=== PATIENT | female | born 1990 | race Caucasian/White ===

== ENCOUNTER 2017-07-04 00:57 | Inpatient (IN) ==
--- OUTSIDE RECORDS SUMMARY | 2017-07-04 04:36 | External Medical Summary | Continuity of Care Document ---
:1990 Author Organization [facility] [employer] [place] Address [address] [place], [place] [address] Phone Support Name Relationship Address Phone Les Capps spouse [address] [phone] [place] [address] Allergies, Adverse Reactions, Alerts Substance Reaction Severity Status No Known Drug Allergies Unknown Active Medications Medication Instructions Dosage Effective Dates Status Comments (start - stop) MULTIVITAMIN - Active (unknown strength) Cipro 500 mg tablet take 1 tablet by 500 MG - No Longer oral route every 12 Active hours Problems Condition Effective Dates (start - stop) Clinical Status Threatened Acute inflammatory disease of uterus 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 quality chemist 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 (general) - (routine) w 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 quality chemist exam (general) (routine) w/o abn findings Pap Smear Screening, Cervix - Amenorrhea, Secondary - Active SAB Uncomplicated, Unspecified - Active Irregular Menses - Active Active Procedures Procedure Date Office/outpatient visit,[facility] Results Test Name Date and Time Measure Units Reference Range Abnormal Flag Comments Unknown Advance Directives Directive Yes / No Effective Date File Name Unknown Encounters Encounter Practice Location Reason(s) Diagnoses Date Provider Care Team Description For Visit Members Office/outpat Associates Kishore early OB Threatened Nov- Newton Referring ient In Womens with Concepcion. Provider: visit,[facility], Health PA, spotting 7 700 Jada [facility] [address], (chief Medical Melissa Blancas, [place], complaint) Center 700 [id number], , [facility] [place] 120, Center tel:+21 Kishore, [facility] 120, [address] [place], Kishore, [id number] [place], , [place]. [id number]. tel: tel: [phone] Sunni Novak Nov-0 Melissa In Womens 8-201 Jada. Health PA, 6 700 [address], Medical [place], [place] [id number], , [facility] [place] 120, tel:21 Kishore, [address] [place], [id number] , [place]. tel: [phone] Sunni Novak Acute Sep-2 Collins Referring In Womens inflammatory 1-201 Namrata. Provider: Health PA, disease of 6 700 Jada [address], uterusEncntr for [place], air quality chemist exam Center 700 [id number], (general) , [facility] (routine) w 120, Center tel:21 abnormal Kishore [facility] 120, [address] findingsEncntr [place] for air quality chemist exam [id number] [place], (general) , [place]. [id number]. (routine) w/o tel: tel: abn findingsPap [phone] Smear Screening, Cervix Associates Kishore May-0 Melissa Referring In Womens 6-201 Jada. Provider: Health DICK, 5 700 Jada [address], Medical [place], [place], Center 700 [id number], , [facility] [place] 120, Center tel:21 Kishore [facility] 120, [address] [place], Kishore, [id number] [place], , [place]. [id number]. tel: tel:[phone] Sunni Novak Marky-0 Melissa Referring In Womens 7-201 Jada. Provider: Health PA, 5 700 Jada [address], Medical [place], [place], Center 700 [id number], , [facility] [place] 120, Center tel:21 Kishore [facility] 120, [address] [place], Kishore, [id number] [place], , [place]. [id number]. tel: tel:[phone] Associates Novak Apr- Melissa In Womens 5-200 Jada. Health PA, 9 700 [address], [facility] [id number], Kurt Ryder [place] 120, tel:39117 [place] [address] [place], [id number] , . tel: [phone] Family History Family Member Diagnosis Age At Onset No family history of Venous Thrombosis Paternal Grandfather Cardiovascular Disease Maternal Grandfather Diabetes mellitus No family history of Pulmonary Embolism Immunizations Vaccine Date Status Comments Influenza, seasonal, injectable, completed Source: Other Provider preservative free, 3 yrs or older Tdap completed Source: New Immunization Record Influenza, injectable, completed Source: New Immunization Record quadrivalent, preservative free, 3 yrs or older Payers Payer name Insurance type Covered libertarian ID Authorization(s) [facility] [id number] [facility] [id number] [facility] [id number] [facility] [id number] Social History Type Description Quantity Date Captured Alcohol Use Details Unknown Caffeine Use Details Unknown Tobacco Use Status Unknown Smoking Status Never smoker Vital Signs Date / Height Weight BMI Pulse Blood Temperature Respiratory Body Head BMI Time: Rate Pressure Rate Surface Circumference percentile Area 168.50 95 115/84 -2017 lbs /min mm[Hg] 2:47 PM Chief Complaint And Reason For Visit Most recent encounter only, dated '11/11/2016 14:50'. early OB with spotting (chief complaint). Description: By LMP, she is 6w0d, with EDC 07/07/17. Wed PMshe had some red spotting, then yesterday morning some bleeding with wiping, and then today a small amount of brown bleeding. No pain. She does have nausea. She is Rh positive. Reason For Referral Reason For Referral Unknown Plan Of Care Date Type Action Status Appointment Mercedes Capps BOOKED Future Order: Lab Order Pap Smear With HPV Reflex If ASCUS Ordered ([id number]) Date Type Problem Goal Intervention Status Start Date Unknown. History Of Present Illness Encounter Date Complaint History Of Present Illness early OB with spotting By LMP, she is 6w0d, with EDC 07/07/17. Wed PM she had some red spotting, then yesterday morning some bleeding with wiping, and then today a small amount of brown bleeding. No pain. She does have nausea. She is Rh positive. Functional Status Encounter Date Functional Assessment Cognitive Assessment Unknown Medications Administered Medication Instructions Dosage Effective Dates (start - stop) Status Comments Drug Treatment Unknown Instructions Date Instruction Additional Information HIV and other routine tests risk factors identified by history anticipated course of care nutrition and weight gain counseling, special diet toxoplasmosis precautions (cats / raw meat) sexual activity exercise indications for ultrasound influenza vaccine environmental / work hazards travel tobacco (ask, advise, assess, assist and arrange) alcohol illicit / recreational drugs use of any medications (including supplements, vitamins, herbs, OTC drugs) smoking counseling domestic violence seat belt use childbirth classes / hospital facilities hospital registration genetic testing new ob handbook
--- OUTSIDE RECORDS SUMMARY | 2017-07-04 04:37 | External Medical Summary | Continuity of Care Document ---
:1990 Author Organization [facility] [employer] [facility] Address [address] [place], [place] [address] Phone Support Name Relationship Address Phone Les Capps spouse [phone] 24 [phone] [place] [address] Allergies, Adverse Reactions, Alerts Substance Reaction Severity Status No Known Drug Allergies Unknown Active Medications Medication Instructions Dosage Effective Dates (start Status Comments - stop) MULTIVITAMIN (unknown - Active strength) Problems Condition Effective Dates (start - stop) Clinical Status Encounter for suprvsn of normal - , second trimester 24 weeks gestation of - 28 weeks gestation of - Acute inflammatory disease of uterus 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) - (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) w 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) (routine) w/o abn findings Pap Smear Screening, Cervix - Threatened Encounter for suprvsn of normal - , first trimester 9 weeks gestation of - Encounter for suprvsn of normal - , first trimester 13 weeks gestation of - Encounter for suprvsn of normal - , second trimester 20 weeks gestation of - Encounter for suprvsn of normal - , second trimester 17 weeks gestation of - Encounter for suprvsn of normal - , second trimester 20 weeks gestation of - Amenorrhea, Secondary - Active SAB Uncomplicated, Unspecified - Active Irregular Menses - Active Active Procedures Procedure Date OB Visit No Charge Hemoglobin count, colorimetric Hematocrit blood count Glucose test Venpnctr fngr/heel/ear stick routne Results Test Name Date and Time Measure Units Reference Range Abnormal Flag Comments Panel Description: Glucose [Mass/volume] in Serum or Plasma --1 hour post 50 g glucose PO GLUCOSE, 125 mg/dL <140 N Test performed at [facility] [facility] 11:47:00 [employer] [id number] (50G)-[address] [place] [address]Xhevzrme: JASMIN RUEDA DO,MPH Panel Description: HEMOGLOBIN + HEMATOCRIT HEMOGLOBIN 11:47:00 12.2 g/dL 11.7-15.5 N HEMATOCRIT 11:47:00 37.0 % 35.0-45.0 N REPORT COMMENT:FASTING :NOTest performed at [facility] [id number] [place] [id number]: JASMIN RUEDA DO,MPH Advance Directives Directive Yes / No Effective Date File Name Unknown Encounters Encounter Practice Location Reason(s) Diagnoses Date Provider Care Team Description For Visit Members Sunni Novak Encounter for Melissa Referring In Womens suprvsn of 0-201 Jada. Provider: Asmita JENNINGS normal 8 700 Jada [address], , Medical Hilary Li [place], [facility] 700 [id number], [id number] Kurt Ryder [facility] [place] weeks gestation 120, [place] tel: of [email or web address] Kishore [facility] 120, [address] weeks gestation Kishore [place], of [id number] [place], , [place]. [id number]. tel: tel: [phone] Sunni Novak Encounter for Melissa Referring In Womens suprvsn of 3-201 Jada. Provider: Asmita JENNINGS normal 7 700 Jada [address], , Medical [place]ary Li [place], [facility] Center 700 [id number], [id number] Kurt Ryder [place] weeks gestation 120, Center tel: of [place], Kurt 120, [address] [place], [place], [id number] [place], , [place]. [id number]. tel: tel:[phone] Sunni Novak Encounter for Dec-1 Melissa Referring In Womens Ultrasound suprvsn of 3-201 Jada. Provider: Health DICK, normal 7 700 Jada [address], , Medical [place]ary [place], second Center 700 [id number], [id number] , [facility] [place] weeks gestation 120, Center tel: of Novak, Kurt 120, [address] [place], [place]ore, [id number] [place], , [place]. [id number]. tel: tel:[phone] Sunni Novak Encounter for Nov-2 Melissa Referring In Womens suprvsn of 2-201 Jada. Provider: Health DICK, normal 7 700 Jada [address], , Medical Hilary Li [place], second Center 700 [id number], [email or web address] , [facility] [place] weeks gestation 120, Center tel: of Kishore, Kurt 120, [address] [place], Kishore, [id number] [place], , [place]. [id number]. tel: tel:[phone] Sunni Novak Encounter for Oct-2 Melissa Referring In Womens suprvsn of 3-201 Jada. Provider: Health DICK, normal 7 700 Jada [address], , Medical [place]ary Li [place], first Center 700 [id number], [email or web address] Dr [facility] [place] weeks gestation 120, Center tel: of Novak, Kurt 120, [address] [place], [place]ishore, [id number] [place], , [place]. [id number]. tel: tel:[phone] Sunni Novak Encounter for Sep-2 Melissa Referring In Womens suprvsn of 7-201 Jada. Provider: Health DICK, normal 7 700 Jada [address], , Medical [place]ary Li [place], first Center 700 [id number], [id number] Dr [facility] weeks gestation 120, Center tel:21 of Kishore, [facility] 120, [address] [place], Kishore, [id number] [place], , [place]. [id number]. tel: tel: [phone] Associates Kishore Threatened Sep-0 Newton Referring In Womens 1-201 Concepcion. Provider: Health PA, 7 700 Jada [address], Samuel Blancas, [place], [place], Center [facility] [id number], , [facility] 120, Center tel: Kishore [facility] 120, [address] [place], Kishore, [id number] [place], , [place]. [id number]. tel: tel: [phone] Associates Kishore Nov-0 Melissa In Womens 8-201 Jada. Health PA, 6 700 [address], [place], [place], [place] , Dr [facility] 120, tel: [place] [address] [place], [id number] , [place]. tel: [phone] Associates Kishore Acute Sep-2 Collins Referring In Womens inflammatory 1-201 Namrata. Provider: Health DICK, disease of 6 700 Jada [address], uterusEncntr [place], for diesel 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 exam Center [facility] [id number], (general) Dr [facility] (routine) w 120, Center tel:21 abnormal Kishore [facility] 120, [address] findingsEncntr Kishore [place] for diesel 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 exam [id number] [place], (general) , [place]. [id number]. (routine) w/o tel: tel: abn findingsPap [phone] Smear Screening, [facility] Kishore May-0 Melissa Referring In Womens 6-201 Jada. Provider: Health PA, 5 700 Jada [address], Medical Melissa Blancas, [place], Center [facility] [id number], Dr [facility] [place] 120, Center tel:21 Kishore [facility] 120, [address] [place], Kishore [id number] [place], , [place]. [id number]. tel: tel: [phone] Associates Kishore Mar- Melissa Referring In Womens 7-201 Jada. Provider: Health PA, 5 700 Jada [address], Medical Melissa Blancas [place], Center 700 [id number], , [facility] 120, [place] Dr tel:+21 [facility], [address] [place], [place], [id number] [place], , [place]. [id number]. tel: tel:[phone] Associates Kishore Apr-0 Melissa In Womens 5-200 Jada. Health PA, 9 700 [address], [place], [place], [place] [id number], , [facility] 120, tel:+21 Kishore, [address] [place], [id number] , [place]. tel: [phone] Family History Family Member Diagnosis Age At Onset No family history of Venous Thrombosis Paternal Grandfather Cardiovascular Disease Maternal Grandfather Diabetes mellitus No family history of Pulmonary Embolism Immunizations Vaccine Date Status Comments Influenza, injectable, completed Source: New Immunization Record quadrivalent, preservative free, 3 yrs or older Influenza, seasonal, injectable, completed Source: Other Provider preservative free, 3 yrs or older Tdap completed Source: New Immunization Record Influenza, injectable, completed Source: New Immunization Record quadrivalent, preservative free, 3 yrs or older Payers Payer name Insurance type Covered constitution party ID Authorization(s) [facility] [id number] [facility] [id number] [facility] [id number] [facility] [id number] [facility] [id number] Social History Type Description Quantity Date Captured Alcohol Use Details No Caffeine Use Details Unknown Tobacco Use Status Unknown Smoking Status Never smoker Vital Signs Date / Height Weight BMI Pulse Blood Temperature Respiratory Body Head BMI Time: Rate Pressure Rate Surface Circumference percentile Area 172.90 30.1 lbs 4 mm[Hg] 10:41 kg/m AM eter (2) Chief Complaint And Reason For Visit Unknown Chief Complaint And Reason For Visit Reason For Referral Reason For Referral Unknown Plan Of Care Date Type Action Status Appointment Mercedes Capps BOOKED Appointment Mercedes Capps BOOKED Appointment Mercedes Capps BOOKED Appointment Mercedes Capps BOOKED Appointment Mercedes Capps BOOKED Future Order: Radiology Order Complete OB Ultrasound > 14 Ordered Weeks ([id number]) Date Type Problem Goal Intervention Status Start Date Unknown. History Of Present Illness Encounter Date Complaint History Of Present Illness This patient has no known history of present illness Functional Status Encounter Date Functional Assessment Cognitive Assessment Unknown Medications Administered Medication Instructions Dosage Effective Dates (start - stop) Status Comments Drug Treatment Unknown Instructions Date Instruction Additional Information domestic violence seat belt use childbirth classes / hospital facilities hospital registration genetic testing HIV and other routine tests risk factors identified by history anticipated course of care nutrition and weight gain counseling, special diet toxoplasmosis precautions (cats / raw meat) sexual activity exercise indications for ultrasound influenza vaccine environmental / work hazards travel use of any medications (including supplements, vitamins, herbs, OTC drugs) HIV and other routine tests risk factors [...]
--- OUTSIDE RECORDS SUMMARY | 2017-07-04 04:37 | External Medical Summary | Continuity of Care Document ---
:1990 Author Organization [facility] [employer] [facility] Address [address] [place], [place] [id number] Phone Support Name Relationship Address Phone Les Capps spouse [address] 24 [phone] [place] [address] Allergies, Adverse Reactions, Alerts Substance Reaction Severity Status No Known Drug Allergies Unknown Active Medications Medication Instructions Dosage Effective Dates (start Status Comments - stop) MULTIVITAMIN (unknown - Active strength) Problems Condition Effective Dates (start - stop) Clinical Status Encounter for suprvsn of normal - , second trimester 20 weeks gestation of - Acute inflammatory disease of uterus 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 Provider: Asmita JENNINGS normal 7 700 Jada [address], , Medical Melissa L, [place], [place], second Center 700 [id number], [email or web address] Dr [place] weeks gestation 120, Center tel: of Kishore [facility] 120, [address] [place], [place]ishore, [id number] [place], , [place]. [id number]. tel: tel:[phone] Sunni Novak Encounter for Dec-1 Melissa [facility] Jada. Provider: Asmita JENNINGS normal 7 700 Jada [address], , Medical Melissa L, [place], second Center 700 [id number], [email or web address] Dr [facility] [place] weeks gestation 120, Center tel: of Kishore [facility] 120, [address] [place], [place]ore, [id number] [place], , [place]. [id number]. tel: tel:+[phone] Sunni Novak Encounter for Nov- Melissa [facility] of Jada. Provider: Amsita JENNINGS normal 7 700 Jada [address], , Medical Melissa L, [place], second Center 700 [id number], [email or web address] Dr [facility] [place] weeks gestation 120, [place] tel: of Kishore [facility] 120, [address] [place], [place]ore, [id number] [place], , [place]. [id number]. tel: tel:+[phone] Sunni Novak Encounter for Oct-2 Melissa Referring In [facility] of Jada. Provider: Asmita JENNINGS normal 7 700 Jada [address], , Medical Melissa L, [place], first Center 700 [id number], [email or web address] Dr [facility] Samuel [place] weeks gestation 120, [place] tel:+ of Kishore [facility] 120, [address] [place], Kishore, [id number] [place], , [place]. [id number]. tel: tel: [phone] Sunni Novak Encounter for Sep-2 Melissa Referring In Womens suprvsn of 7-201 Jada. Provider: Health DICK, normal 7 700 Jada [address], , Medical Olu Lita [place], first Center [facility] [id number], [id number] , [facility] [place] weeks gestation 120, Center tel:21 of Kishore [facility] 120, [address] [place], [place]ishore, [id number] [place], , [place]. [id number]. tel: tel: [phone] Sunni Novak Threatened Sep-0 Newton Referring In Womens 1-201 Concepcion. Provider: Asmita JENNINGS, 7 700 Jada [address], Hilary [place], Center [facility] [id number], Dr [facility] [place] 120, [place] tel:21 Kishore [facility] 120, [address] Kishore [place], [id number] [place], , [place]. [id number]. tel: tel: [phone] Sunni Novak Nov-0 Melissa In Womens 8-201 Jada. Health DICK, 6 700 [address], [place], [place] [id number], Dr [facility] [place] 120, tel:21 Kishore, [address] [place], [id number] , [place]. tel: [phone] Sunni Novak Acute Sep-2 Collins Referring In Womens inflammatory 1-201 Namrata. Provider: Health DICK, disease of 6 700 Jada [address], uterusEncntr [place]ina [place], for photography editor exam Center [facility] [id number], (general) Dr [facility] [place] (routine) w 120, Center tel:21 abnormal Kishore Kurt 120, [address] findingsEncntr Kishore [place] for photography editor exam [id number] [place], (general) , [place]. [id number]. (routine) w/o tel: tel:[phone] [facility] [id number] Smear Screening, Cervix Associates Kishore Melissa Referring In Womens 6-201 Jada. Provider: Health PA, 5 700 Jada [address], [place], Center 700 [id number], , [facility] [place] 120, Center tel:21 Kishore, [facility] 120, [address] [place], [place]ore, [id number] [place], , [place]. [id number]. tel: tel: [phone] Associates Kishore Melissa Referring In Womens 7-201 Jada. Provider: Health PA, 5 700 Jada [address], Samuel Blancas [place], Center 700 [id number], , [facility] 120, [place] tel:21 Kishore, Kurt 120, [address] [place], [place], [id number] [place], , [place]. [id number]. tel: tel: [phone] Associates Kishore Melissa In Womens 5-200 Jada. Health PA, 9 700 [address], [place], [place], [place] [id number], , [facility] 120, tel:21 Kish[place] [address] [place], [id number] , [place]. tel: [phone] Family History Family Member Diagnosis Age At [...] older Payers Payer name Insurance type Covered alliance party ID Authorization(s) [facility] [id number] [facility] [id number] [facility] [id number] [facility] [id number] BCBS [facility] [id number] Social History Type Description Quantity Date Captured Unknown Vital Signs Date / Height Weight BMI Pulse Blood Temperature Respiratory Body Head BMI Time: Rate Pressure Rate Surface Circumference percentile Area Unknown Chief Complaint And Reason For Visit Unknown Chief Complaint And Reason For Visit Reason For Referral Reason For Referral Unknown Plan Of Care Date Type Action Status Appointment Mercedes Capps BOOKED Future Order: Radiology Order Complete OB Ultrasound > 14 Ordered Weeks ([id number]) Date Type Problem Goal Intervention Status Start [...]
--- OUTSIDE RECORDS SUMMARY | 2017-07-04 04:37 | External Medical Summary | Continuity of Care Document ---
:1990 Author Organization 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 Provider: Asmita JENNINGS, Carol Elias [address], Hilary Craven [place], [place] [id number] [facility] 120, Center tel:[phone] Kurt Novak 120, [address] SP[place], Kishore, [id number] [place], , [place]. [id number]. tel: tel: [phone] Sunni Novak Aug-3 Melissa In Womens 1-201 [facility], 7 700 [address], [place], [place], Center , , [facility] US 120, tel:21 Kishore, [address] [place], [id number] , [place]. tel: [phone] Sunni Novak Nov-0 Melissa In Womens 8-201 [facility]. [facility] [place], 6 700 [address], [place], [place], Center [id number], , [facility] US 120, tel:21 Kishore, [address] [place], [id number] , [place]. tel: [phone] Sunni Cisse Sep-2 Collins Referring In Womens inflammatory 1-201 Namrata. Provider: Health DICK, disease of 6 700 Jada [address], uterusEncntr for Medical Melissa [place], [place], outdoor adventure leader exam Center [facility] [id number], (general) [facility] US (routine) w 120, Center tel:21 abnormal Kishore [facility] 120, [address] findingsEncntr Kishore VILLAGRAN for outdoor adventure leader exam [id number] [place], (general) , [place]. [id number]. (routine) w/o tel: tel: abn findingsPap [phone] Smear Screening, [facility] Kishore July-0 Melissa Referring In Womens 6-201 Jada. Provider: Asmita JENNINGS, 5 700 Jada [address], Medical Melissa Blancas [place], Center [facility] [id number], Dr [facility] US 120, Center tel:+21 Kishore [facility] 120, [address] Kishore [place], [id number] [place], , [place]. [id number]. tel: tel:+ [phone] Sunni Novak Marky-0 Melissa Referring In Womens 7-201 Jada. Provider: Health [place], 5 700 Jada [address], Medical Melissa Blancas [place], [place], Center 700 [id number], Dr [facility] US 120, [place] tel:+21 Kurt Novak 120, [address] Kishore [place]RAN [id number] [place], , [place]. [id number]. tel: tel: [phone] Associates Kishore b-0 Melissa In Womens 5-200 Jada. [facility], 9 700 [address], Medical [place], [place] [id number], Kurt Ryder [place] 120, tel:[phone] Nov[place], [address] [place], [id number] , [place]. tel: [phone] Family History Family Member Diagnosis Age At [...] older Payers Payer name Insurance type Covered green party ID Authorization(s) [facility] [id number] [facility] [id number] [facility] [id number] [facility] [id number] Social History Type Description Quantity Date Captured Unknown Vital Signs Date / Height Weight BMI Pulse Blood Temperature Respiratory Body Head BMI Time: Rate Pressure Rate Surface Circumference percentile Area Unknown Chief Complaint And Reason For Visit Unknown Chief Complaint And Reason For Visit Reason For Referral Reason For Referral Unknown Plan Of Care Date Type Action Status Appointment Mercedes Capps BOOKED Date Type Problem Goal Intervention Status Start [...]
--- OUTSIDE RECORDS SUMMARY | 2017-07-04 04:37 | External Medical Summary | Continuity of Care Document ---
:1988 Author Organization [facility] Address [address] [place], [place] [address] Phone Support Name Relationship Address Phone Les Capps spouse [phone] [address] 24 [phone] [place] [address] Allergies, Adverse Reactions, Alerts Substance Reaction Severity Status No Known Drug Allergies Unknown Active Medications Medication Instructions Dosage Effective Dates (start Status Comments - stop) MULTIVITAMIN (unknown - Active strength) Problems Condition Effective Dates (start - stop) Clinical Status Encounter for suprvsn of normal - , second trimester 20 weeks gestation of - Acute inflammatory disease of uterus 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 (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 Provider: Asmita JENNINGS normal 7 700 Jada [address], , Medical Melissa L, [place], [place], second Center 700 [id number], [email or web address] Dr [facility] US weeks gestation 120, Center tel:+ of Kishore [facility] 120, [address] [place], [place]ishore, [id number] [place], , [place]. [id number]. tel: tel:[phone] Sunni Novak Encounter for Dec-1 Melissa [facility] [place]ada. Provider: Asmita JENNINGS normal 7 700 Jada [address], , Medical Melissa L, [place], [place], second Center 700 [id number], [email or web address] Dr [facility] US weeks gestation 120, Center tel: of Kishore [facility] 120, [address] [place], [place]ore, [id number] [place], , [place]. [id number]. tel: tel:[phone] Sunni Novak Encounter for Nov- Melissa [facility] In [facility] Jada. Provider: Asmita JENNINGS normal 7 700 Jada [address], , Medical Melissa L, [place], [place], second Center 700 [id number], [email or web address] Dr [facility] US weeks gestation 120, [place] tel: of Kishore [facility] 120, [address] [place], [place], [id number] [place], , [place]. [id number]. tel: tel:[phone] Sunni Novak Encounter for Oct- Melissa Ref[facility] In [facility] Jada. Provider: Asmita JENNINGS normal 7 700 Jada [address], , Medical Melissa L, [place], [place], first Center 700 [id number], [email or web address] Dr [facility] US weeks gestation 120, [place] tel:[phone] of Kishore [facility] 120, [address] SP[place], Kishore, [id number] [place], , [place]. [id number]. tel: tel:+ [phone] Sunni Novak Encounter for Sep-2 Melissa Referring In Womens suprvsn of 7-201 Jada. Provider: Health DICK, normal 7 700 Jada [address], , Medical Melissa Blancas [place], first Center 700 [id number], [id number] , [facility] weeks gestation 120, Center tel:+21 of Kishore, [facility] 120, [address] SPARK[place], Kishore, [id number] [place], , [place]. [id number]. tel: tel:+ [phone] Sunni Novak Threatened Sep-0 Newton Referring In Womens 1-201 Concepcion. Provider: Asmtia JNENINGS, 7 700 Jada [address], Samuel Blancas [place], [place], [place] [id number], [address] [facility] 120, [place] tel:+21 Kishore [facility] 120, [address] SPARK[place], Kishore, [id number] [place], , [place]. [id number]. tel: tel: [phone] Sunni Novak Nov-0 Melissa In Womens 8-201 Jada. Health DICK, 6 700 [address], Medical [place], [place] [id number], Dr [facility] US 120, tel:21 Kishore, [address] [place], [id number] , [place]. tel: [phone] Sunni Novak Acute Sep-2 Collins Referring In Womens inflammatory 1-201 Namrata. Provider: Health DICK, disease of 6 700 Jada [address], uterusEncntr Samuel Blancas [place], for music theory teacher exam Center [facility] [id number], (general) Dr [facility] US (routine) w 120, Center tel:+21 abnormal Kishore [facility] 120, [address] findingsEncntr Kishore VILLAGRAN for music theory teacher exam [id number] [place], (general) , [place]. [id number]. (routine) w/o tel: tel:+[phone] abn findingsPap [phone] Smear Screening, [facility] [place]ore Melissa Referring In Womens 6-201 Jada. Provider: Health PA, 5 700 Jada [address], [place], Center 700 [id number], , [facility] 120, [place] tel:21 Kishore, [facility] 120, [address] [place], [place], [id number] [place], , [place]. [id number]. tel: tel: [phone] Associates Kishore Melissa Referring In Womens 7-201 Jada. Provider: Health PA, 5 700 Jada [address], [place], Center 700 [id number], , [facility] 120, [place] tel:21 Kishore, [facility] 120, [address] [place], [place]ore, [id number] [place], , [place]. [id number]. tel: tel: [phone] Associates Kishore Melissa In Womens 5-200 Jada. Health [facility], 9 700 [address], [place], [place], [place] [id number], , [facility] 120, tel:21 K[place] [address] [place], [id number] , [place]. tel: [phone] Family History Family Member Diagnosis Age At [...] older Payers Payer name Insurance type Covered democrat ID Authorization(s) [facility] [id number] [facility] [id number] [facility] [id number] [facility] BL [id number] [facility] [id number] Social History Type Description Quantity Date Captured [...] Complete OB Ultrasound > 14 Ordered Weeks (47060) Date Type Problem Goal Intervention Status Start [...]
--- OUTSIDE RECORDS SUMMARY | 2017-07-04 04:37 | External Medical Summary | Continuity of Care Document ---
:1988 Author Organization [facility] Address [address] [place], [place] [id number] Phone Support Name Relationship Address Phone Les Capps spouse [phone] [address] 24 [phone] [place] [address] Allergies, Adverse Reactions, Alerts Substance Reaction Severity Status No Known Drug Allergies Unknown Active Medications Medication Instructions Dosage Effective Dates (start Status Comments - stop) MULTIVITAMIN (unknown - Active strength) Problems Condition Effective Dates (start - stop) Clinical Status Maternal care for oth - abnormality and damage, unsp Encounter for suprvsn of normal - , third trimester 28 weeks gestation of - 34 weeks gestation of - Acute inflammatory disease of uterus 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) (routine) w/o abn findings Pap Smear Screening, Cervix - Threatened Maternal care for oth - abnormality and damage, unsp Encounter for suprvsn of normal - , third trimester 37 weeks gestation of - Maternal care for oth - abnormality and damage, unsp Encounter for suprvsn of normal - , third trimester 30 weeks gestation of - Maternal care for oth - abnormality and damage, unsp Encounter for suprvsn of normal - , third trimester 32 weeks gestation of - Maternal care for oth - abnormality and damage, unsp Encounter for suprvsn of normal - , third trimester 28 weeks gestation of - Maternal care for oth - abnormality and damage, unsp 32 weeks gestation of - Encounter for suprvsn of normal - , first trimester 9 weeks gestation of - Encounter for suprvsn of normal - , first trimester 13 weeks gestation of - Encounter for suprvsn of normal - , second trimester 24 weeks gestation of - 28 weeks gestation of - Encounter for suprvsn of normal - , second trimester 20 weeks gestation of - Encounter for suprvsn of normal - , second trimester 17 weeks gestation of - Encounter for suprvsn of normal - , second trimester 20 weeks gestation of - Encounter for suprvsn of normal - , third trimester 36 weeks gestation of - Amenorrhea, Secondary - [...] Provider Care Team Description For Visit Members Associates Kishore Maternal care Melissa Referring In Womens for oth 1 Jada. Provider: Health DICK, abnormality and 8 700 Jada [address], damage, Medical Hilary Li [place], unspEncounter Center 700 [id number], for suprvsn of Kurt Ryder normal 120, Center tel:+[phone] , Novak, [facility] 120, [address] third Kishore VILLAGRAN, [email or web address] [place], weeks gestation , [place]. [id number]. of tel: tel: [phone] Associates [facility]ishore Encounter for Apr-0 Melissa Referring In Womens suprvsn of 4-201 Jada. Provider: Asmita JENNINGS, normal 8 700 Jada [address], , Medical Melissa L, [place], [place], third Center 700 [id number], [email or web address] Kurt Ryder weeks gestation 120, Center tel: of Kurt Novak 120, [address] [place], [place], [id number] [place], , [place]. [id number]. tel: tel:[phone] Associates Kishore Maternal care Mar-2 Melissa Referring In Womens for oth 1-201 Jada. Provider: Asmita JENNINGS, abnormality and 8 700 Jada [address], damage, Medical Melissa L, [place], [place], unspEncounter Center 700 [id number], for suprvsn of Kurt Ryder [facility] normal 120, Center tel: , Kurt Novak 120, [address] third [place], [email or web address] [place], weeks gestation , [place]. [id number]. of [id number] tel: tel:+316 weeks gestation [phone] of Associates Kishore Maternal care Mar-0 Melissa Referring In Womens for oth 7-201 Jada. Provider: Asmita JENNINGS, abnormality and 8 700 Jada [address], damage, Medical Melissa Blancas, [place], [place], unspEncounter Center 700 [id number], for suprvsn of Kurt Ryder normal 120, Center tel: , Kurt Novak 120, [address] third Kishore VILLAGRAN, [id number] [place], weeks gestation , [place]. [id number]. of tel: tel: [phone] Sunni Novak Maternal care Mar-0 Melissa Referring In Womens Ultrasound for oth 7-201 Jada. Provider: Asmita JENNINGS, abnormality and 8 700 Jada [address], damage, unsp32 Medical [place], [place], weeks gestation Center 700 [id number], of Dr, [facility] US 120, Center tel: Kishore [facility] 120, [address] SP[place], [place], [id number] [place], , [place]. [id number]. tel: tel:[phone] Sunni Novak Maternal care Fe-2 Melissa Referring In Womens for oth 1-201 Jada. Provider: Health DICK, abnormality and 8 700 Jada [address], damage, Medical Melissa L, [place], [place], unspEncounter Center 700 [id number], for suprvsn of Kurt Ryder [facility] normal 120, Center tel: , Kishore [facility] 120, [address] third SPARKLE Novak, [email or web address] [place], weeks gestation , [place]. [id number]. of tel: tel:[phone] Sunni Novak Maternal care 0 Melissa Referring In Womens for oth 7-201 Jada. Provider: Health DICK, abnormality and 8 700 Jada [address], damage, Medical Melissa L, [place], unspEncounter Center 700 [id number], for suprvsn of Kurt Ryder [facility] normal 120, Center tel: , Kurt Novak 120, [address] third Kishore VILLAGRAN, [email or web address] [place], weeks gestation , [place]. [id number]. of tel: tel:[phone] Sunni Novak Encounter for Melissa Referring In Womens suprvsn of 0-201 Jada. Provider: Health DICK, normal 8 700 Jada [address], , Medical MelissaHilary [place], second Center 700 [id number], [id number] Kurt Ryder [facility] weeks gestation 120, Center tel: of [email or web address] Kishore [facility] 120, [address] weeks gestation Kishore [place], of [id number] [place], , [place]. [id number]. tel: tel:[phone] Sunni Novak Encounter for Melissa Referring In Womens suprvsn of 3-201 Jada. Provider: Health DICK, normal 7 700 Jada [address], , Medical Hilary Li [place], second Center 700 [id number], [email or web address] Dr [facility] US weeks gestation 120, Center tel:+ of Kishore, Kurt 120, [address] [place], [place]ore, [id number] [place], , [place]. [id number]. tel: tel:[phone] Novak Encounter for Dec-1 Melissa Referring In Womens Ultrasound suprvsn of 3-201 Jada. Provider: Health DICK, normal 7 700 Jada [address], , Medical Hilary Li [place], second Center 700 [id number], Dr [facility] [place] weeks gestation 120, Center tel:+ of Kishore Kurt 120, [address] [place], [place]ore, [id number] [place], , [place]. [id number]. tel: tel:[phone] Novak Encounter for Nov-2 Melissa Referring In Womens suprvsn of 2-201 Jada. Provider: Asmita JENNINGS, normal 7 700 Jada [address], , Medical Hilary Li [place], second Center 700 [id number], [email or web address] Dr [facility] [place] weeks gestation 120, Center tel:+ of Kishore, Kurt 120, [address] [place], [place], [id number] [place], , [place]. [id number]. tel: tel:[phone] Novak Encounter for Oct-2 Melissa Referring In Womens suprvsn of 3-201 Jada. Provider: Asmita JENNINGS, normal 7 700 Jada [address], , Medical Hilary Li [place], first Center 700 [id number], [email or web address] Dr [facility] US weeks gestation 120, Center tel:+ of Kishore Kurt 120, [address] [place], [place]ore, [id number] [place], , [place]. [id number]. tel: tel:[phone] Novak Encounter for Sep-2 Melissa Referring In Womens suprvsn of 7-201 Jada. Provider: Asmita JENNINGS, normal 7 700 Jada [address], , Medical Melissa Blancas [place], first Center 700 [id number], [id number] , [facility] weeks gestation 120, Center tel:21 of Kishore, Kurt 120, [address] [place], [place], [id number] [place], , [place]. [id number]. tel: tel: [phone] Sunni Novak Threatened Sep-0 Newton Referring In Womens 1-201 Concepcion. Provider: Asmita JENNINGS, 7 700 Jada [address], [place], Center [facility] [id number], Dr [facility] 120, Center tel:21 Kurt Novak 120, [address] Kishore [place]RAN, [id number] [place], , [place]. [id number]. tel: tel: [phone] Sunni Novak Nov-0 Melissa In Womens 8-201 Jada. Health DICK, 6 700 [address], Medical [place], [place] [id number], Dr [facility] 120, tel:21 Kishore, [address] [place], [id number] , [place]. tel: [phone] Sunni Novak Acute Sep-2 Collins Referring In Womens inflammatory 1-201 Namrata. Provider: Asmita JENNINGS, disease of 6 700 Jada [address], uterusEncntr Samuel Blancas [place], for chief of police exam Center 700 [id number], (general) Dr [facility] (routine) w 120, Center tel:21 abnormal Kishore [facility] 120, [address] findingsEncntr Kishore VILLAGRAN for chief of police exam [id number] [place], (general) , [place]. [id number]. (routine) w/o tel: tel:+316 abn findingsPap [phone] Smear Screening, [facility] K[place]ore May-0 Melissa Referring In Womens 6-201 Jada. Provider: Asmita JENNINGS, 5 700 Jada [address], Samuel Blancas [place], Center 700 [id number], , [facility] [place] 120, Center tel:+75713 Kishore Kurt 120, [address] [place], Kishore, [id number] [place], , [place]. [id number]. tel: tel:[phone] Associates Kishore Marky-0 Melissa Referring In Womens 7-201 Jada. Provider: Health CT, 5 700 Jada [address], [place], Center 700 [id number], , [facility] 120, [place] tel:+21 Kishore [facility] 120, [address] [place], [place]ishore, [id number] [place], , [place]. [id number]. tel: tel:[phone] Associates Kishore Fe-0 Melissa In Womens 5-[address], 9 700 [address], [place], [place] [id number], , [facility] 120, tel:+[phone] Kishore, [address] [place], [id number] , [place]. tel: [phone] Family History Family Member Diagnosis Age At Onset No family history of Venous Thrombosis Paternal Grandfather Cardiovascular Disease Maternal Grandfather Diabetes mellitus No family history of Pulmonary Embolism Immunizations Vaccine Date Status Comments Tdap completed Source: New Immunization Record Influenza, injectable, completed Source: New Immunization Record quadrivalent, preservative free, 3 yrs or older Influenza, seasonal, injectable, completed Source: Other Provider preservative free, 3 yrs or older Tdap completed Source: New Immunization Record Influenza, injectable, completed Source: New Immunization Record quadrivalent, preservative free, 3 yrs or older Payers Payer name Insurance type Covered alliance party ID Authorization(s) [facility] [id number] [facility] Aid CI [id number] [facility] Aid CI [id number] [facility] [id number] [facility] [id number] [facility] [id number] Social History Type Description Quantity Date Captured [...] Mercedes Capps BOOKED Future Order: Radiology Order Ultrasound OB Follow-up (85647) Ordered Future Order: Radiology Order Complete OB Ultrasound > 14 Ordered Weeks (08348) Date Type Problem Goal Intervention Status Start [...]
--- OUTSIDE RECORDS SUMMARY | 2017-07-04 04:37 | External Medical Summary | Continuity of Care Document ---
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 Advance Directives Directive Yes / No Effective Date File Name Unknown Encounters Encounter Practice Location Reason(s) Diagnoses Date Provider Care Team Description For Visit Members Associates Kishore Rodriguez Nov- [place] Referring In Womens 1201 Concepcion. Provider: Asmita JENNINGS, Carol Elias [address], [place], Center 700 [id number], [facility] US 120, Center tel:21 Kishore [facility] 120, [address] Kishore [place], [id number] [place], , [place]. [id number]. tel: tel: [phone] Associates Kishore Nov-0 Melissa In Womens 8-201 Jada. Health DICK, 6 700 [address], Medical [place], Center [id number], , [facility] US 120, tel:21 Kishore, [address] [place], [id number] , [place]. tel: [phone] Preventive Associates Kishore an Acute Sep-2 [place] Referring checkup, In Womens established inflammatory 1-201 Namrata. Provider: est,18-39 yrs Health DICK, patient well disease of 6 700 Jada [address], woman exam uterusEncntr Samuel Torres [place], [place], (chief for residential team leader exam Center [facility] , complaint) (general) Dr [facility] US (routine) w 120, Center tel:21 abnormal Kishore [facility] 120, [address] findingsEncntr Kishore [place] for residential team leader exam [id number] [place], (general) , [place]. [id number]. (routine) w/o tel: tel: abn findingsPap [phone] Smear Screening, Cervix [facility] Kishore July-0 Melissa Referring In Womens 6-201 Jada. Provider: Asmita JENNINGS, 5 700 Jada [address], Samuel Blanc[place], Center [facility] [id number], Dr [facility] US 120, Center tel:+21 Kishore [facility] 120, [address] Kishore [place], [id number] [place], , [place]. [id number]. tel: tel:[phone] Associates Kishore Marky-0 Melissa Referring In Womens 7-201 Jada. Provider: Asmita JENNINGS, 5 700 Jada [address], Samuel Blanc[place], Center [facility] [id number], Dr [facility] US 120, Center tel:21 Kishore Kurt 120, [address] [place], [place], [id number] [place], , [place]. [id number]. tel: tel: [phone] Sunni Novak Apr- Melissa In Womens 5-200 Jada. [facility], 9 700 [address], [facility] [id number], , [facility] 120, tel:30313 Kishore [address] [place], [id number] , [place]. tel: [phone] Family History Family Member Diagnosis Age At [...] Insurance type Covered green party ID Authorization(s) [facility] CI [id number] [facility] [id number] [facility] [id number] [facility] [id number] Social History Type Description Quantity Date Captured Alcohol Use Details No Caffeine Use Details combo 3 cups per day Tobacco Use Status Never smoked tobacco Smoking Status Never smoker Vital Signs Date / Height Weight BMI Pulse Blood Temperature Respiratory Body Head BMI Time: Rate Pressure Rate Surface Circumference percentile Area 63.25 162.50 28.5 75 108/71 2016 in lbs 6 /min mm[Hg] 9:39 kg/m AM eter (2) Chief Complaint And Reason For Visit Unknown Chief Complaint And Reason For Visit Reason For Referral Reason For Referral Unknown Plan Of Care Date Type Action Status Appointment Mercedes Capps BOOKED Date Type Problem Goal Intervention Status Start Date Unknown. History Of Present Illness Encounter Date Complaint History Of Present Illness an established patient well woman Needs a refill on her exam OCP's. Reports bad cramping during the middle of the month in October. Had some post coital bleeding in October also. None since. Functional Status Encounter Date Functional Assessment Cognitive [...]
--- OUTSIDE RECORDS SUMMARY | 2017-07-04 04:37 | External Medical Summary | Continuity of Care Document ---
:1988 Author Organization [facility] Address [address] [place] [phone] Phone Support Name Relationship Address Phone Les Capps spouse [phone] 24 [phone] [place] [address] Allergies, Adverse Reactions, Alerts Substance Reaction Severity Status No Known Drug Allergies Unknown Active Medications Medication Instructions Dosage Effective Dates (start Status Comments - stop) MULTIVITAMIN (unknown - Active strength) Problems Condition Effective Dates (start - stop) Clinical Status Encounter for suprvsn of normal - , second trimester 17 weeks gestation of - Acute inflammatory disease of uterus 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) - (routine) w 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) (routine) w/o abn findings Pap Smear Screening, Cervix - Threatened Encounter for suprvsn of normal - , first trimester 9 weeks gestation of - Encounter for suprvsn of normal - , first trimester 13 weeks gestation of - Amenorrhea, Secondary - Active SAB Uncomplicated, Unspecified - Active Irregular Menses - Active Active Procedures Procedure Date 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 Provider: Health PA, normal 7 700 Jada [address], , Medical Melissa L, [place], [place], second Center 700 [id number], [id number] Dr [facility] weeks gestation 120, Center tel:+ of Kishore, Kurt 120, [address] [place], Kishore, [id number] [place], , [place]. [id number]. tel: tel:[phone] Sunni Novak Encounter for Oct-2 Melissa Referring In Womens suprvsn of 3-201 Jada. Provider: Health DICK, normal 7 700 Jada [address], , first Medical Melissa L, [place], SPARK[place], [id number] Center 700 [id number], weeks gestation Dr [facility] of 120, Center tel:+ Kishore Kurt 120, [address] [place], Kishore, [id number] [place], , [place]. [id number]. tel: tel:[phone] Sunni [place] Encounter for Sep-2 Melissa Referring In Womens suprn of 7-201 Jada. Provider: Asmita JENNINGS, normal 7 700 Jada [address], , first Medical [place], trimester9 weeks Center 700 [id number], gestation of Dr [facility] 120, Center tel:+21 Kishore Kurt 120, [address] [place], Kishore, [id number] [place], , [place]. [id number]. tel: tel:[phone] Sunni [place]ak Threatened Sep-0 [place] Referring In Womens 1-201 Concepcion. Provider: Health DICK, 7 700 Jada [address], Medical [place], Center [id number], [address] [facility] 120, Center tel:+21 Kurt [place] 120, [address] [place], Kishore, [id number] [place], , [place]. [id number]. tel: tel:[phone] Sunni Novak Nov-0 Melissa In Womens 8-201 Jada. Health DICK, 6 700 [address], Medical [place], Center [id number], , [facility] US 120, tel:21 Kishore, [address] [place], [id number] , [place]. tel: [phone] Sunni Cisse Sep-2 [place] Referring In Womens inflammatory 1-201 Namrata. Provider: Health DICK, disease of 6 700 Jada [address], uterusEncntr for [place], milk vendor exam Center [facility] [id number], (general) , [facility] [place] (routine) w 120, Center tel:21 abnormal Kishore, [facility] 120, [address] findingsEncntr SPARKLE, Kishore, for milk vendor exam [id number] [place], (general) , [place]. [id number]. (routine) w/o tel: tel: abn findingsPap [phone] Smear Screening, Cervix Associates Kishore July-0 Emlissa Referring In Womens 6-201 Jada. Provider: Asmita JENNINGS, 5 700 Jada [address], [place], Center [facility] [id number], , [facility] US 120, Center tel:21 Kishore, [facility] 120, [address] [place], Kishore, [id number] [place], , [place]. [id number]. tel: tel: [phone] Sunni Novak Marky-0 Melissa Referring In Womens 7-201 Jada. Provider: Asmita JENNINGS, 5 700 Jada [address], [place], Center [facility] [id number], , [facility] US 120, Center tel:21 Kishore, [facility] 120, [address] [place], Kishore, [id number] [place], , [place]. [id number]. tel: tel: [phone] Sunni Novak Fe-0 Melissa In Womens 5-200 Jada. Health DICK, 9 700 [address], [place], [place], Center [id number], , [facility] US 120, tel:21 Kishore, [address] [place], [id number] , [place]. tel: [phone] Family History Family Member Diagnosis Age At [...] name Insurance type Covered democrat ID Authorization(s) [facility] Aid CI [id number] [facility] [id number] [facility] CI [id number] [facility] [id number] [facility] [id number] Social History Type Description Quantity Date Captured Alcohol Use Details No Caffeine Use Details Unknown Tobacco Use Status Unknown Smoking Status Never smoker Vital Signs Date / Height Weight BMI Pulse Blood Temperature Respiratory Body Head BMI Time: Rate Pressure Rate Surface Circumference percentile Area 166.40 29.0 102/64 2017 lbs 1 mm[Hg] 11:17 kg/m AM eter (2) Chief Complaint And Reason For Visit Unknown Chief Complaint And Reason For Visit Reason For Referral Reason For Referral Unknown Plan Of Care Date Type Action Status Unknown. Date Type Problem Goal Intervention Status Start [...]
--- OUTSIDE RECORDS SUMMARY | 2017-07-04 04:37 | External Medical Summary | Continuity of Care Document ---
:1988 Author Organization [facility] Address [address] [place], [place] [id number] Phone Support Name Relationship Address Phone Les Capps spouse [phone] [address] [phone] [place] [address] Allergies, Adverse Reactions, Alerts Substance Reaction Severity Status No Known Drug Allergies Unknown Active Medications Medication Instructions Dosage Effective Dates (start Status Comments - stop) MULTIVITAMIN (unknown - Active strength) Problems Condition Effective Dates (start - stop) Clinical Status Encounter for suprvsn of normal - , first trimester 13 weeks gestation of - Acute inflammatory disease of uterus Encntr for club former exam (general) - (routine) w 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 for club former exam (general) (routine) w/o abn findings Pap Smear Screening, Cervix - Threatened Encounter for suprvsn of normal - , first trimester 9 weeks gestation of - Amenorrhea, Secondary - Active SAB Uncomplicated, Unspecified - Active Irregular Menses - Active Active Procedures Procedure Date Immuniz admnin, 1 vac, sngl/combo 19 Yrs + Flu Vaccine - Quadrivalent 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 Provider: Health DICK, normal 7 700 Jada [address], , first Medical [place] Li [place], [email or web address] Center [facility] [id number], weeks gestation Dr [facility] of 120, Center tel:+21 Kishore Kurt 120, [address] [place], Kishore, [id number] [place], , [place]. [id number]. tel: tel:+ [phone] Sunni Novak Encounter for Sep-2 Melissa Referring In Womens suprvsn of 7-201 Jada. Provider: Asmita JENNINGS, normal 7 700 Jada [address], , first Medical [place] Li [place], trimester9 weeks Center [facility] [id number], gestation of Dr [facility] 120, Center tel:+ Kishore [facility] 120, [address] [place], [place], [id number] [place], , [place]. [id number]. tel: tel:+ [phone] Sunni Novak Threatened Sep-0 [place] Referring In Womens 1-201 Concepcion. Provider: Asmita JENNINGS, 7 700 Jada [address], [place], [place] [address] [id number], [address] [facility] US 120, [place] tel:+21 Kishore [facility] 120, [address] [place], Kishore, [id number] [place], , [place]. [id number]. tel: tel:+ [phone] Sunni Novak Nov-0 Melissa In Womens 8-201 Jada. Health DICK, 6 700 [address], Samuel Richard [place], [place] [id number], Dr [facility] US 120, tel:+21 Kishore, [address] [place], [id number] , [place]. tel: [phone] Sunni Novak Acute Sep-2 [place] Referring In Womens inflammatory 1-201 Namrata. Provider: Asmita JENNINGS, disease of 6 700 Jada [address], uterusEncntr for [place], club former exam Center [facility] [id number], (general) Dr Kurt Medical [place] (routine) w 120, Center tel:21 abnormal [place], [facility] 120, [address] findingsEncntr Kishore [place], for club former exam [id number] [place], (general) , [place]. [id number]. (routine) w/o tel: tel: abn findingsPap [phone] Smear Screening, [facility] Kishore July- Melissa Referring In Womens 6-201 Jada. Provider: Asmita JENNINGS, 5 700 Jada [address], [place], Center 700 [id number], , [facility] US 120, Center tel:21 Kishore [facility] 120, [address] Kishore [place], [id number] [place], , [place]. [id number]. tel: tel: [phone] Associates Kishore Melissa Referring In Womens 7-201 Jada. Provider: Asmita JENNINGS, 5 700 Jada [address], [place], [place] [id number], , [facility] 120, [place] tel:21 Kishore [facility] 120, [address] [place], Kishore, [id number] [place], , [place]. [id number]. tel: tel: [phone] Associates Kishore Apr-0 Melissa In Womens 5-200 Jada. Health DICK, 9 700 [address], [place], [place] [id number], , [facility] 120, tel: Kishore [address] [place], [id number] , [place]. tel: [phone] Family History Family Member Diagnosis Age At [...] older Payers Payer name Insurance type Covered republican ID Authorization(s) [facility] CI [id number] [facility] [id number] [facility] CI [id number] [facility] [id number] [facility] [id number] Social History Type Description Quantity Date Captured [...]
--- OUTSIDE RECORDS SUMMARY | 2017-07-04 04:37 | External Medical Summary | Continuity of Care Document ---
:1988 Author Organization [facility] Address [address] [place], [place] [id number] Phone Support Name Relationship Address Phone Les Capps spouse [address] 24 [phone] [place] [address] Allergies, Adverse Reactions, Alerts Substance Reaction Severity Status No Known Drug Allergies Unknown Active Medications Medication Instructions Dosage Effective Dates (start Status Comments - stop) MULTIVITAMIN (unknown - Active strength) Problems Condition Effective Dates (start - stop) Clinical Status Maternal care for oth - abnormality and damage, unsp Encounter for suprvsn of normal - , third trimester 28 weeks gestation of - Acute inflammatory disease of uterus 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 Provider: Asmita JENNINGS abnormality and 8 700 Jada [address], damage, [place], unspEncounter Center 700 [id number], for suprvsn of Kurt Ryder [facility] normal 120, Center tel: , Kishore, Kurt 120, [address] third [place] Kishore, [id number] [place], weeks gestation , [place]. [id number]. of tel: tel:+ [phone] Sunni Novak Maternal care Melissa Referring In Womens for oth 7-201 Jada. Provider: Asmita JENNINGS abnormality and 8 700 Jada [address], damage, [place], unspEncounter Center 700 [id number], for suprvsn of Kurt Ryder normal 120, Center tel: , Kishore, Kurt 120, [address] third [place]ARK[place], [place], [id number] [place], weeks gestation , [place]. [id number]. of tel: tel:[phone] Sunni Novak Encounter for Melissa Referring In Womens suprvsn of 0-201 Jada. Provider: Asmita JENNINGS normal 8 700 Ajda [address], , [place], second Center 700 [id number], [email or web address] Dr [facility] Medical [place] weeks gestation 120, Center tel: of [id number] Kishore, Kurt 120, [address] weeks gestation [place], Kishore, of [id number] [place], , [place]. [id number]. tel: tel:+[phone] Sunni Novak Encounter for Dec-1 Melissa Referring In Womens suprvsn of 3-201 Jada. Provider: Health DICK, normal 7 700 Jada [address], , Medical Melissa L, [place], [place], second Center 700 [id number], [id number] Dr [facility] US weeks gestation 120, Center tel: of Kishore Kurt 120, [address] [place], Kishore, [id number] [place], , [place]. [id number]. tel: tel:+[phone] Sunni Novak Encounter for Dec-1 Melissa Referring In Womens Ultrasound suprvsn of 3-201 Jada. Provider: Asmita JENNINGS, normal 7 700 Jada [address], , Medical Melissa L, [place], [place], second Center 700 [id number], [email or web address] Dr [facility] US weeks gestation 120, Center tel: of Kurt [place] 120, [address] [place], Kishore, [id number] [place], , [place]. [id number]. tel: tel:+[phone] [place]ak Encounter for Nov-2 Melissa Referring In Womens suprvsn of 2-201 Jada. Provider: Asmita JENNINGS, normal 7 700 Jada [address], , Medical Melissa Magalis, [place], [place], second Center 700 [id number], [email or web address] Dr [facility] Medical [place] weeks gestation 120, Center tel: of Kishore Kurt 120, [address] [place], Kishore, [id number] [place], , [place]. [id number]. tel: tel:[phone] Sunni Novak Encounter for Oct-2 Melissa Referring In Womens suprvsn of 3-201 Jada. Provider: Asmita JENNINGS, normal 7 700 Jada [address], , Medical Melissa L, [place], [place], first Center 700 [id number], [id number] Dr [facility] weeks gestation 120, Center tel: of Kishore [facility] 120, [address] [place], Kishore, [id number] [place], , [place]. [id number]. tel: tel:+ [phone] Sunni Novak Encounter for Sep-2 Melissa Referring In Womens suprvsn of 7-201 Jada. Provider: Health DICK, normal 7 700 Jada [address], , Medical Melissa , [place], first Center 700 [id number], [id number] Dr [facility] weeks gestation 120, Center tel: of Kishore [facility] 120, [address] [place], Kishore, [id number] [place], , [place]. [id number]. tel: tel:+ [phone] Sunni Novak Threatened Sep-0 [place] Referring In Womens 1-201 Concepcion. Provider: Asmita JENNINGS, 7 700 Jada [address], [place], [place] [address] [id number], Dr [facility] US 120, [place] tel:+ Kishore [facility] 120, [address] [place], Kishore, [id number] [place], , [place]. [id number]. tel: tel:+[phone] Sunni Novak Nov-0 Melissa In Womens 8-201 Jada. Health DICK, 6 700 [address], [place], [place], [place] [id number], Dr [facility] US 120, tel:+21 Kishore, [address] [place], [id number] , [place]. tel: [phone] Sunni Novak Acute Sep-2 [place] Referring In Womens inflammatory 1-201 Namrata. Provider: Asmita JENNINGS, disease of 6 700 Jada [address], uterusEncntr [place], for lcpc exam Center 700 , (general) Dr [facility] (routine) w 120, [place] tel: abnormal Novak, [facility] 120, [address] findingsEncntr Kishore V[place]RAN, for lcpc exam [id number] [place], (general) , [place]. [id number]. (routine) w/o tel: tel: abn findingsPap [phone] Smear Screening, [facility] Kishore Melissa Referring In Womens 6-201 Jada. Provider: Health DICK, 5 700 Jada [address], Medical Melissa Blancas [place], Center 700 [id number], , [facility] US 120, [place] tel:21 Kishore Kurt 120, [address] [place], Kishore, [id number] [place], , [place]. [id number]. tel: tel: [phone] Associates Kishore Melissa Referring In Womens 7-201 Jada. Provider: Health DICK, 5 700 Jada [address], [place], Center [facility] [id number], , [facility] 120, [place] tel:21 Kishore [facility] 120, [address] Kishore [place], [id number] [place], , [place]. [id number]. tel: tel: [phone] Associates Kishore Apr- Melissa In Womens 5-200 Jada. Health PA, 9 700 [address], [place], [place], [place] [id number], , [facility] 120, tel: Kishore [address] [place], [id number] , [place]. tel: [phone] Family History Family Member Diagnosis Age At [...] Insurance type Covered alliance party ID Authorization(s) [facility] [id number] [facility] Aid CI [id number] [facility] CI [id number] [facility] [id number] [facility] [id number] Social History Type Description Quantity Date Captured [...] Complete OB Ultrasound > 14 Ordered Weeks (28647) Date Type Problem Goal Intervention Status Start [...]
--- OUTSIDE RECORDS SUMMARY | 2017-07-04 04:38 | External Medical Summary | Continuity of Care Document ---
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) - (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) w 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 for 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 (general) (routine) w/o abn findings Pap Smear Screening, Cervix - Amenorrhea, Secondary - Active SAB Uncomplicated, Unspecified - Active Irregular Menses - Active Active Procedures Procedure Date Office/outpatient visit,[facility] Results Test Name Date and Time Measure Units Reference Range Abnormal Flag Comments Unknown Advance Directives Directive Yes / No Effective Date File Name Unknown Encounters Encounter Practice Location Reason(s) Diagnoses Date Provider Care Team Description For Visit Members Office/outpat Associates Kishore early OB Threatened Sep-0 Newton Referring ient In Womens with Concepcion. Provider: visit,[facility] DICK, spotting 7 700 Jada low [address], ( Medical Melissa Blancas [place], [place], complaint) Center 700 [id number], [facility] 120, [place] tel:[phone] Kurt Novak 120, [address] [place], [place]ishore, [id number] [place], , [place]. [id number]. tel: tel:[phone] Sunni Novak Nov-0 Melissa In Womens 8-201 Jada. Health DICK, 6 700 [address], Medical [place], Center [id number], , [facility] [place] 120, tel:+[phone] Kishore, [address] [place], [id number] , [place]. tel: [phone] Sunni Cisse Sep-2 Collins Referring In Womens inflammatory 1-201 Namrata. Provider: Health DICK, disease of 6 700 Jdaa [address], uterusEncntr for Medical [facility] [place], [place], 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 Center 700 [id number], (general) , [facility] (routine) w 120, Center tel:21 abnormal Kishore, [facility] 120, [address] findingsEncntr [place]ore for 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 [id number] [place], (general) , [place]. [id number]. (routine) w/o tel: tel: abn findingsPap [phone] Smear Screening, [facility] Kishore May-0 Melissa Referring In Womens 6-201 Jada. Provider: Asmita JENNINGS, 5 700 Jada [address], [place], Center 700 [id number], , [facility] [place] 120, Center tel:+21 Kishore [facility] 120, [address] [place], [id number] [place], , [place]. [id number]. tel: tel:[phone] Sunni Novak Marky-0 Melissa Referring In Womens 7-201 Jada. Provider: Asmita JENNINGS, 5 700 Jada [address], [place], Center 700 [id number], , [facility] [place] 120, Center tel:+21 Kishore Kurt 120, [address] [place] [id number] [place], , [place]. [id number]. tel: tel:[phone] Sunni Novak Feb-0 Melissa In Womens 5-200 Jada. Health DICK, 9 700 [address], [place], [place], Center [id number], Kurt Ryder [place] 120, tel:[phone] [place], [address] [place], [id number] , [place]. tel: [phone] Family History Family Member Diagnosis Age At [...] Insurance type Covered constitution party ID Authorization(s) [facility] [id number] [facility] [id number] [facility] [id number] [facility] [id number] Social History Type Description Quantity Date Captured Alcohol Use Details Unknown Caffeine Use Details Unknown Tobacco Use Status Unknown Smoking Status Never smoker Vital Signs Date / Height Weight BMI Pulse Blood Temperature Respiratory Body Head BMI Time: Rate Pressure Rate Surface Circumference percentile Area 168.50 95 115/ lbs /min mm[Hg] 2:47 PM Chief Complaint And Reason For Visit Most recent encounter only, dated '11/11/2016 14:50'. early OB with spotting (chief complaint). Description: By LMP, she is 6w0d, with EDC 07/07/17. Mon PMshe had some red spotting, then yesterday [...]
--- OUTSIDE RECORDS SUMMARY | 2017-07-04 04:38 | External Medical Summary | Continuity of Care Document ---
:1990 Author Organization [facility] Allergies Active Description Code Type Severity Reaction Onset Reported/ Identified Relationship Clinical to Patient Status Yes No Known 88475 3 N/A N/A Drug 0 Allergies Yes No Known Aller M N/A 10/14/2008 Allergies gy Medications Medication Packaging Start Date Stop Date Route Dosage Sig Bottle 11/05/2014 TOBRAMYCIN 6 instill 1 drop by ophthalmic route every 6 hours into affected eye(s) Package 11/05/2014 NORETHINDRONE 6 take 1 tablet by oral route every day Tablet 04/15/2015 NORGESTIMATE-ETHIN 6 take 1 tablet YL ESTRADIOL by oral route every day CIPRO Tablet 12/02/2015 7 take 1 tablet by oral route every 12 hours Problems Date Dx Coded Attending Type Code Diagnosis Diagnosed By 02/22/2017 Jada Torres Z34.82 Encounter for L suprvsn of normal , second trimester 02/22/2017 Jada Torres Z3A.20 20 weeks gestation L of 05/17/2017 Jada Torres O35.8xx0 Maternal care for L oth abnormality and damage, unsp 05/17/2017 Jada Torres Z3A.32 32 weeks gestation L of Procedures Code Description [place] [address] Ultrasnd 02/22/2017 exam of preg uterus, compl 12868 Ultrasnd 05/17/2017 preg uterus, flwup/repeat Results There is no data. Encounters ACCT No. Visit Discharge Status Pt. Type Provider Facility Loc./Unit Complaint Date/Time [id number] 06/28/2017 06/28/2017 CLS Outpatient Melissa, 09:45:00 23:59:59 Jada Blancas [id number] 06/21/2017 06/21/2017 CLS Outpatient Melissa, 09:15:00 23:59:59 Jada Blancas [id number] 06/14/2017 06/14/2017 CLS Outpatient Melissa, 10:15:00 23:59:59 Jada L [id number] 05/31/2017 05/31/2017 CLS Outpatient Melissa, 09:45:00 23:59:59 Jada L [id number] 05/17/2017 05/17/2017 CLS Outpatient Melissa, 09:45:00 23:59:59 Jada L [id number] 05/17/2017 05/17/2017 CLS Outpatient Melissa, 09:15:00 23:59:59 Jada L [id number] 05/03/2017 05/03/2017 CLS Outpatient Melissa, 10:45:00 23:59:59 Jada L [id number] 04/19/2017 04/19/2017 CLS Outpatient Melissa, 14:10:00 23:59:59 Jada L [id number] 03/22/2017 03/22/2017 CLS Outpatient Melissa, 10:30:00 23:59:59 Jada L [id number] 02/22/2017 02/22/2017 CLS Outpatient Melissa, 09:40:00 23:59:59 Jada L [id number] 02/22/2017 02/22/2017 CLS Outpatient Melissa, 09:15:00 23:59:59 Jada L [id number] 02/01/2017 02/01/2017 CLS Outpatient Melissa, 11:25:00 23:59:59 Jada L [id number] 01/02/2017 01/02/2017 CLS Outpatient Melissa, 11:30:00 23:59:59 Jada L [id number] 12/07/2016 12/07/2016 CLS Outpatient Melissa, 13:15:00 23:59:59 Jada L [id number] 11/11/2016 11/11/2016 CLS Outpatient Newton, 14:50:00 23:59:59 Concepcion K [id number] 11/10/2016 11/10/2016 CLS Outpatient Melissa, 10:05:00 23:59:59 Jada L [id number] 01/19/2016 01/19/2016 CLS Outpatient Melissa, 11:47:00 23:59:59 Jada L [id number] 12/02/2015 12/02/2015 CLS Outpatient Collins, 09:30:00 23:59:59 Namrata Garduno [id number] 04/15/2015 04/15/2015 CLS Outpatient Melissa, 09:38:00 23:59:59 Jada Blancas [id number] 11/05/2014 11/05/2014 CLS Outpatient Chaz, 10:45:00 23:59:59 Kassi [id number] 07/04/2017 ACT Inpatient MELISSA Novak induction 162 04:31:00 , [facility] JADA Blancas Center
--- OUTSIDE RECORDS SUMMARY | 2017-07-04 04:38 | External Medical Summary | Continuity of Care Document ---
:1990 Author Organization [facility] Address [address] [place], [place] [id number] Phone Support Name Relationship Address Phone Les Capps spouse [address] [facility] [phone] [place] [address] Allergies, Adverse Reactions, Alerts Substance Reaction Severity Status No Known Drug Allergies Unknown Active Medications Medication Instructions Dosage Effective Dates (start Status Comments - stop) MULTIVITAMIN (unknown - Active strength) Problems Condition Effective Dates (start - stop) Clinical Status Encounter for suprvsn of normal - , first trimester 9 weeks gestation of - Acute inflammatory disease of uterus 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) - (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0 Thousand/uL 3.8-10.8 H COUNT 13:39:00 RED BLOOD CELL 4.64 Million/uL 3.80-5.10 N COUNT 13:39:00 HEMOGLOBIN 13.4 g/dL 11.7-15.5 N 13:39:00 HEMATOCRIT 40.4 % 35.0-45.0 N 13:39:00 MCV 87.1 fL 80.0-100.0 N 13:39:00 MCH 28.9 pg 27.0-33.0 N 13:39:00 MCHC 33.2 g/dL 32.0-36.0 N 13:39:00 RDW 12.7 % 11.0-15.0 N 13:39:00 PLATELET COUNT 280 Thousand/uL 140-400 N 13:39:00 MPV 11.3 fL 7.5-12.5 N 13:39:00 ABSOLUTE 9960 cells/uL 6552-3230 H NEUTROPHILS 13:39:00 ABSOLUTE 1404 cells/uL 850-3900 N LYMPHOCYTES 13:39:00 ABSOLUTE 540 cells/uL 200-950 N MONOCYTES 13:39:00 ABSOLUTE 60 cells/uL 15-500 N EOSINOPHILS 13:39:00 ABSOLUTE 36 cells/uL 0-200 N BASOPHILS 13:39:00 NEUTROPHILS 83 % N 13:39:00 LYMPHOCYTES 11.7 % N 13:39:00 MONOCYTES 4.5 % N 13:39:00 EOSINOPHILS 0.5 % N 13:39:00 BASOPHILS 0.3 % N 13:39:00 ANTIBODY SCREEN, NO ANTIBODIES N RBC W/REFL ID, 13:39:00 DETECTED Reference range TITER AND AG No antibodies detected This assay is a screening test for the detection of red blood cell antibodies. The test is not to be used for pretransfusion screening or for the medical management of an alloimmunized . ABO GROUP A 13:39:00 RH TYPE RH(D) 13:39:00 POSITIVE RPR (DX) W/REFL NON-REACTIVE NON-REACTIV N TITER AND 13:39:00 E CONFIRMATORY TESTING HEPATITIS B NON-REACTIVE NON-REACTIV N SURFACE ANTIGEN 13:39:00 E RUBELLA ANTIBODY 2.14 index N Index (IGG) 13:39:00 Interpretation ----- <0.90 Not consistent with Immunity 0.90-0.99 Equivocal > or=1.00 Consistent with Immunity The presence of rubella IgG antibody suggests immunization or past or current infection withrubella virus.Test performed at [facility], [place] [address]Zuwjqim r: JASMIN RUEDA DO,MPH Panel Description: HIV 1/2 ANTIGEN/ANTIBODY,FOURTH GENERATION W/RFL HIV NON-REACTIVE NON-REACTIVE N HIV-1 antigen and HIV-1/HIV- 2 antibodies were AG/AB, 13:39:00 notdetected. There is no laboratory evidence of 4TH GEN HIVinfection. PLEASE NOTE: This information has been disclosed toyou from records whose confidentiality may beprotected by state law. If your state requires suchprotection, then the state law prohibits you frommaking any further disclosure of the informationwithout the specific written consent of the personto whom it pertains, or as otherwise permitted by law.A general authorization for the release of medical orother information is NOT sufficient for this purpose. For additional information please refer tohttp://education.[employer]/faq/DJD286(This link is being provided for informational/educational purposes only.) The performance of this assay has not been clinicallyvalidated in patients less than 2 years old. REPORT COMMENT:FASTING:NOTest performed at [facility] [place] [address]Yoehsmhz: JASMIN RUEDA DO,MPH Panel Description: Bacteria identified in Urine by Culture CULTURE, URINE, 13:40:00 SEE NOTE CULTURE, URINE, ROUTINE ROUTINE MICRO NUMBER: [id number] TEST STATUS: FINAL SPECIMEN SOURCE: URINE, CLEAN CATCH SPECIMEN QUALITY: ADEQUATE RESULT: No GrowthREPORT COMMENT:RFASTING:[place]KNOWNTest [place] [address]Ynkmudwe: JASMIN RUEDA DO,MPH Panel Description: CHLAMYDIA/N. GONORRHOEAE RNA, TMA CHLAMYDIA NOT DETECTED NOT DETECTED N TRACHOMATIS RNA, 13:41:00 TMA NEISSERIA NOT DETECTED NOT DETECTED N GONORRHOEAE RNA, 13:41:00 TMA [id number] SEE NOTE This test was 13:41:00 performed using the APTIMA COMBO2 Assay([employer] The analytical performance characteristics of this assay, when used to test SurePath specimens havebeen determined by [employer]. REPORT COMMENT:FASTING:UNKNO WNTest performed at [facility] [employer] [id number] [place] [address]Ahnwxunv: JASMIN RUEDA DO,MPH Panel Description: Pap Smear With HPV Reflex If ASCUS Document Pap Smear 13:15:00 See scanned report. Advance Directives Directive Yes / No Effective Date File Name Unknown Encounters Encounter Practice Location Reason(s) Diagnoses Date Provider Care Team Description For Visit Members Sunni Novak Encounter for Melissa Referring In Womens suprvsn of 7-201 Jada. Provider: Health DICK, normal 7 700 Jada [address], , first [place], trimester9 weeks Center 700 [id number], gestation of Dr [facility] 120, Center tel:[phone] [facility] 120, [address] [place], [place]ishore, [id number] [place], , [place]. [id number]. tel: tel:[phone] Sunni Novak Threatened Sep-0 Newton Referring In Womens 1-201 Concepcion. Provider: Health DICK, 7 700 Jada [address], [place], Center 700 [id number], Dr [facility] 120, Center tel:[phone] [facility] 120, [address] [place], [place] [id number] [place], , [place]. [id number]. tel: tel:[phone] Sunni Novak Nov-0 Melissa In Womens 8-201 Jada. Health [place], 6 700 [address], [place], [place], Center [id number], , [facility] [place] 120, tel:+21 Kishore, [address] [place], [id number] , [place]. tel: [phone] Sunni Cisse Sep-2 Collins Referring In Womens inflammatory 1-201 Namrata. Provider: Health DICK, disease of 6 700 Jada [address], uterusEncntr for [place], pressure tester exam Center [facility] [id number], (general) , [facility] [place] (routine) w 120, Center tel:+21 abnormal Kishore, [facility] 120, [address] findingsEncntr SPARKLE, Kishore for pressure tester exam [id number] [place], (general) , [place]. [id number]. (routine) w/o tel: tel:+[phone] abn findingsPap [phone] Smear Screening, [facility] Kishore July-0 Melissa Referring In Womens 6-201 Jada. Provider: Health DICK, 5 700 Jada [address], Medical Melissa [place], Center [facility] [id number], , [facility] US 120, Center tel:+[address] [facility] 120, [address] [place], [place], [id number] [place], , [place]. [id number]. tel: tel:+ [phone] Sunni Novak Marky-0 Melissa Referring In Womens 7-201 Jada. Provider: Health DICK, 5 700 Jada [address], [place], Center 700 [id number], , [facility] [place] 120, Center tel:+[address] [facility] 120, [address] [place], [place]ishore, [id number] [place], , [place]. [id number]. tel: tel:[phone] Sunni Novak Fe-0 Melissa In Womens 5-200 Jada. Health [place], 9 700 [address], [place], Center [id number], , [facility] [place] 120, tel:+[phone] [place] [address] [place], [id number] , [place]. tel:[phone] Family History Family Member Diagnosis Age At [...] name Insurance type Covered republican ID Authorization(s) [facility] [id number] [facility] BL [id number] [facility] [id number] [facility] [id number] Social History Type Description Quantity Date Captured Alcohol Use Details No Caffeine Use Details combo 3 cups per day Tobacco Use Status Never smoked tobacco Smoking Status Never smoker Non-Smoking Tobacco Use : No Details Available : No Details Available Details Vital Signs Date / Height Weight BMI Pulse Blood Temperature Respiratory Body Head BMI Time: Rate Pressure Rate Surface Circumference percentile Area 166.60 29.0 114/ lbs 5 mm[Hg] 1:19 kg/m PM eter (2) Chief Complaint And Reason For [...]
[2017-07-04] MEDS ORDERED: D5LR 1,000 ML IV PRN (04:44)
[2017-07-04] MEDS ORDERED: LR 1,000 ML IV PRN (04:44)
[2017-07-04] MEDS ORDERED: CALCIUM CARBONATE Chewable 500mg TABLET PO PRN ×2 (04:44→11:51)
[2017-07-04] MEDS ORDERED: ACETAMINOPHEN 500 MG TABLET PO PRN ×2 (04:44→11:51)
[2017-07-04] MEDS ORDERED: CARBOPROST 250 MCG/ML INJECTION IM PRN (04:44)
[2017-07-04] MEDS ORDERED: METHYLERGONOVINE 0.2 MG/ML INJECTION IM PRN (04:44)
[2017-07-04] MEDS ORDERED: OXYTOCIN DRIP 30 UNIT/500 ML ML IV PRN (04:44)
[2017-07-04] MEDS ORDERED: MAG-AL + SIM ORAL LIQUID 30ml PO PRN ×2 (04:44→11:51)
[2017-07-04] MEDS ORDERED: LIDOCAINE 1% (10mg/ml) 2mL INJ PF SDV ID PRN (04:44)
[2017-07-04 05:15] VITALS: BMI 31.6
[2017-07-04] MEDS ORDERED: HYDROCORTISONE 2.5% CREAM 30gm RECTALLY PRN (11:51)
[2017-07-04] MEDS ORDERED: DiphenhydrAMINE 25 MG CAPSULE PO PRN (11:51)
[2017-07-04] MEDS: IBUPROFEN 800 MG TABLET PO SCH ×2 (12:00→21:25)
[2017-07-04] MEDS: HYDROCODONE/APAP 5mg/325mg TABLET PO PRN ×2 (12:30→21:24)
--- NOTE | 2017-07-04 15:51 | Labor and Delivery Note ---
DATE 07/04/2017 Ms. Capps progressed very well in first stage of labor with no epidural. She pushed for a short time, delivering the head in the OA presentation then proceeded to push the remainder of the baby with one further push. Baby was then bulb suctioned. The cord was fairly short so I held the baby for about a minute, bulb suctioning, then clamped the cord and cut it and placed baby on mother's abdomen. This is a liveborn male with Apgars of 9 and 10. His weight was 6 pounds, 8.4 ounces. After a few moments, the placenta delivered spontaneously, intact. It had a normal configuration and a normal-appearing three-vessel cord. The perineum was intact. There were superficial bilateral periurethral lacerations that were hemostatic and were not repaired. Total blood loss is about 200 mL. At the time of this dictation, mother and baby are doing well. [facility]
[2017-07-05 00:27] VITALS: RESP 16
[2017-07-05] MEDS: IBUPROFEN 800 MG TABLET PO SCH ×2 (05:50→15:42)
--- NOTE | 2017-07-05 08:14 | OB/GYN Progress Note ---
OB-PP Progress Note - General PPD1 Maternal Group B Strep: Negative Maternal blood type: A+ Maternal Rubella Status: Immune - Subjective Date: 07/05/17 Lochia: Minimal Pain: controlled Voiding: voiding Nausea or Vomiting Present: No - Objective Vital Signs: Last Vital Signs Temp 98.1 F 07/04/17 23:45 Pulse 79 07/04/17 23:45 Resp 16 07/04/17 23:45 BP 112/65 07/04/17 23:45 Pulse Ox 100 07/04/17 23:45 Urine Output: good General: alert and oriented Abdomen: fundus firm, non-tender Extremities: non-tender Edema: none - Assessment Assessment: SP, - Plan Plan: routine care
[2017-07-05 08:49] VITALS: O2SAT 97
[2017-07-05] MEDS ORDERED: DOCUSATE CALCIUM 240 MG CAPSULE PO SCH (09:00)
[2017-07-05] MEDS ORDERED: PRENATAL VITAMIN TABLET PO SCH (09:00)
[2017-07-05 16:22] VITALS: BP 114/71; PULSE 72; TEMP 98.2
== END 2017-07-05 18:45 | disposition home or self-care (01) | DRG 775 ==
LOC: MC 04:31
PROVIDERS: ADMIT Obstetrics & Gynecology; ATTEND Obstetrics & Gynecology